=== PATIENT | male | born 1980 | race Caucasian/White ===

== ENCOUNTER 2018-07-18 09:46 | Emergency (ER) | payer SELFPAY ==
[~2018-07-18] VITALS: Ht 175.3 cm; Wt 63.5 kg
[~2018-07-18 09:46] MED LIST: CATAFLAM PO; CEPH500C PO
--- OUTSIDE RECORDS SUMMARY | 2018-07-18 09:50 | XMS REPORT | Continuity of Care Document ---
Author Author [facility] Organization [facility] Address Unknown Phone Unavailable Allergies Active Description Code Type Severity Reaction Onset Reported/Identified Relationship to Patient Clinical Status Yes ERYTHROMYCIN MILD OTHER Yes erythromycin base [id number] Drug Allergy Unknown N/A 12/12/2014 Medications Medication Packaging Start Date Stop Date Route Dosage Sig AMOX-CLAV 875/125 TAB 875 MG-125MG (AUGMENTIN) TAB 06/14/2018 06/14/2018 ONCE&1835 Problems Date Dx Coded Attending Type Code Diagnosis Diagnosed By 12/12/2014 KIMI DHILLON DO Ot 521.00 UNSPEC DENTAL CARIES 12/12/2014 KIMI DHILLON DO Ot 522.5 PERIAPICAL ABSCESS 12/12/2014 KIMI DHILLON DO Ot 525.9 DENTAL DISORDER NOS 03/21/2015 RAY BRAMBILA, HALEY Stephenson Ot 305.1 03/21/2015 RAY BRAMBILA, HALEY Stephenson Ot 786.50 03/21/2015 HALEY BELL MD Ot 922.1 03/21/2015 HALEY BELL MD Ot 959.01 03/21/2015 HALEY BELL MD Ot E000.8 03/21/2015 HALEY BELL MD Ot E849.7 03/21/2015 HALEY BELL MD Ot E880.9 01/15/2016 DANIEL LANDRY DO Ot E86.0 DEHYDRATION 01/15/2016 DANIEL LANDRY DO Ot F15.10 OTHER STIMULANT ABUSE, UNCOMPLICATED 01/15/2016 DANIEL LANDRY DO Ot F17.210 NICOTINE DEPENDENCE, CIGARETTES, UNCOMPL 01/15/2016 DANIEL LANDRY DO Ot R20.2 PARESTHESIA OF SKIN 01/16/2016 DANIEL LANDRY DO Ot E86.0 DEHYDRATION 01/16/2016 DANIEL LANDRY DO Ot F15.10 OTHER STIMULANT ABUSE, UNCOMPLICATED 01/16/2016 DANIEL LANDRY DO Ot F17.210 NICOTINE DEPENDENCE, CIGARETTES, UNCOMPL 01/16/2016 DANIEL LANDRY DO Ot R20.2 PARESTHESIA OF SKIN 01/05/2018 Wang Cross 521.00 DENTAL CARIES, UNSPECIFIED 01/05/2018 Wang Cross K02.9 DENTAL CARIES, UNSPECIFIED 06/14/2018 Terrance Armas 706.2 SEBACEOUS CYST 06/14/2018 Terrance Armas L72.3 SEBACEOUS CYST Procedures There is no data. Results There is no data. Encounters ACCT No. Visit Date/Time Discharge Status Pt. Type Provider Facility Loc./Unit Complaint [id number] 01/15/2016 10:00:00 01/15/2016 12:20:00 DIS Emergency DANIEL LANDRY DO [facility] ER [id number] 03/20/2015 22:35:00 03/21/2015 00:39:00 DIS Emergency HALEY BELL MD [facility] ER [id number] 12/12/2014 01:59:00 12/12/2014 02:39:00 DIS Emergency KIMI DHILLON DO [facility] ER [id number] 06/14/2018 17:50:00 06/14/2018 19:02:00 [id number] 01/05/2018 09:55:00 01/05/2018 11:01:00 [id number] 06/14/2018 18:37:30 Document Registration [email or web address] 03/20/2015 22:35:21 ACT Document Registration
--- NOTE | 2018-07-18 10:28 | ED Integumentary General ---
General Chief Complaint: Skin/Wound Problems Stated Complaint: STOMACH WOUND;INFECTED Nursing Triage Note: PT AMBULATES TO ROOM 9 PT CO OF WOUND ON R LOWER ABD, PT HAS 4IVC2OY WOUND ON R LOWER ABD. STATES STARTED LAST WEDNESDAY GETTING RED. PT STATES HAS SAME AREA COUPLE YEARS AGO IN SAME SPOT BUT HEALED UP Source: patient Exam Limitations: no limitations (HALEY BELL MD) History of Present Illness Date Seen by Provider: Jul 18, 2018 Time Seen by Provider: 10:13 Initial Comments Here with complaint of wound to the right lower abdomen. Apparently she's had an abscess there previously and he was able to squeeze it and get it to drain. He comes back intermittently. It came back over the last several days and he tried to squeeze it today and it appears to have drained under the skin laterally now and not out. There is redness and inflammation around it. Denies fevers or vomiting. Timing/Duration: week, getting worse Severity: moderate Location: torso Possible Cause: no cause identified Associated Symptoms: edema; No fever, No rash (HALEY BELL MD) Allergies and Home Medications Allergies Coded Allergies: erythromycin base (Unverified Allergy, Unknown, 12/12/14) Home Medications Sulfamethoxazole/Trimethoprim 1 Each Tablet, 1 EACH PO BID Prescribed by: HALEY BELL on 07/18/18 1059 Patient Home Medication List Home Medication List Reviewed: Yes (HALEY BELL MD) Review of Systems Review of Systems Constitutional: see HPI; No chills, No fever Respiratory: no symptoms reported Cardiovascular: no symptoms reported Skin: see HPI, change in color, lesions Psychiatric/Neurological: No Symptoms Reported (HALEY BELL MD) Past Ysxmodn-Wbkhqb-Vsvoma Hx Past Med/Social Hx: Reviewed Nursing Past Med/Soc Hx (HALEY BELL MD) Patient Social History Alcohol Use: Rarely Uses Recreational Drug Use: Yes (POT) Smoking Status: Current Everyday Smoker Type Used: Cigarettes Recent Foreign Travel: No Contact w/Someone Who Travel: No Recent Infectious Disease Expo: No Recent Hopitalizations: No (HALEY BELL MD) Immunizations Up To Date Tetanus Booster (TDap): Unknown (HALEY BELL MD) Seasonal Allergies Seasonal Allergies: No (HALEY BELL MD) Past Medical History Surgeries: No Respiratory: No Cardiac: No Neurological: No Reproductive Disorders: No Sexually Transmitted Disease: No HIV/AIDS: No Gastrointestinal: No Musculoskeletal: No Endocrine: No Cancer: No Psychosocial: No Integumentary: No Blood Disorders: No Adverse Reaction/Blood Tranf: No (HALEY BELL MD) Family Medical History Reviewed Nursing Family Hx (HALEY BELL MD) Physical Exam Vital Signs Vital Signs - First Documented 07/18/18 09:56 Temp 96.6 Pulse 79 Resp 18 B/P (MAP) 163/104 (123) Pulse Ox 99 (JULIANA WALSHIS) Vital Signs Capillary Refill : Less Than 3 Seconds (HALEY BELL MD) General Appearance: WD/WN, no apparent distress Cardiovascular: regular rate, rhythm, no murmur Respiratory: lungs clear, normal breath sounds Skin: warm/dry Skin Problem Location: torso (right lower quadrant abdomen at the belt line) Skin Problem Character: abscess (1 x 2 cm), erythema (3 x 3 cm over area of tenderness), tenderness (HALEY BELL MD) Procedures/Interventions I&D : Site: right lower abdominal wall Blade Size: 11 I & D Procedure: betadine prep Packing/Drain: Idoform 08/05 Progress Betadine scrub was used at the area. The abscess was anesthetized with approximately 3 and half mL of lidocaine 1% without epinephrine. A single 1 cm incision was made into the central punctum area using an 11 blade scalpel. Moderate amount of white purulent drainage was expressed. Hemostats were used to break up loculations. Iodoform packing was used, approximately half an inch to pack the wound, leaving a wick to facilitate drainage. Patient tolerated procedure well. Gauze dressing was applied. (ALMA DELIA WALSH) Progress/Results/Core Measures Results/Orders Medications Given in ED Current Medications Medications Dose Ordered Sig/Yulissa Route Start Time Stop Time Status Last Admin Dose Admin Lidocaine HCl 20 ml ONCE ONCE INJ 07/18/18 11:00 07/18/18 11:01 DC 07/18/18 11:00 5 ML (ALMA DELIA WALSH) Vital Signs/I&O 07/18/18 09:56 Temp 96.6 Pulse 79 Resp 18 B/P (MAP) 163/104 (123) Pulse Ox 99 (ALMA DELIA WALSH) Blood Pressure Mean: 123 Progress Progress Note : Progress Note Seen and evaluated. I&D wound after anesthesia with local 2 percent lidocaine with epinephrine. Wound culture obtained. Packed with dressing. Discharged home with return precautions. Patient verbalize understanding instructions and agreement with plan. (HALEY BELL MD) Departure Impression Primary Impression: Abscess Disposition: HOME, SELF-CARE Condition: Improved Departure-Patient Inst. Decision time for Depature: 10:27 (HALEY BELL MD) Referrals: NO,LOCAL PHYSICIAN (PCP/Family) Primary Care Physician Patient Instructions: Abscess Incision and Drainage (DC) Add. Discharge Instructions: All discharge instructions reviewed with patient and/or family. Voiced understanding. Take medications as directed. You may use ibuprofen and 600 mg every 8 hours as needed for pain. You may take Tylenol/acetaminophen 1000 mg every 8 hours as needed for pain. Return in 2 days for wound recheck and packing removal. Return for worse pain, foul-smelling drainage, fever, weakness, breathing problems or other concerns as needed. Scripts Sulfamethoxazole/Trimethoprim (Sulfamethoxazole-Tmp Ds Tablet) 1 Each Tablet 1 EACH PO BID, #14 TAB 0 Refills Prov: HALEY BELL MD 07/18/18 HALEY BELL MD Jul 18, 2018 10:28 ALMA DELIA WALSH Jul 18, 2018 11:20
[2018-07-18] MEDS ORDERED: LIDOCAINE 1% INJ 20 ML 20 ML VIAL ONE (10:56)
[2018-07-18] MEDS ORDERED: SULF-222 PO (10:59)
[2018-07-18] MEDS ORDERED: HYDROcodone/APAP 7.5 MG/325 MG (LORTAB, LORCET PLUS) TABLET PO STA (10:59)
[2018-07-18] MEDS ORDERED: LIDOCAINE 1% INJ 20 ML 20 ML VIAL INJ ONE (11:00)
[2018-07-18 11:56] VITALS: BP 163/104
== END 2018-07-18 11:56 | disposition home or self-care (01) ==
LOC: EDUNIT# 09:46 → ER 09:47
DX: L02.211 Cutaneous abscess of abdominal wall (principal); F12.10 Cannabis abuse, uncomplicated; F17.210 Nicotine dependence, cigarettes, uncomplicated; Z88.0 Allergy status to penicillin
CPT/HCPCS: 10060; 87070; 87205

== ENCOUNTER 2018-09-10 01:03 | Emergency (ER) | payer SELFPAY ==
[~2018-09-10] VITALS: Ht 175.3 cm; Wt 68.0 kg
[~2018-09-10 01:03] MED LIST changes: +SULF-222 PO
--- OUTSIDE RECORDS SUMMARY | 2018-09-10 01:10 | XMS REPORT | Continuity of Care Document ---
Author Author [facility] Organization [facility] Address Unknown Phone Unavailable Allergies Active Description Code Type Severity Reaction Onset Reported/Identified Relationship to Patient Clinical Status Yes ERYTHROMYCIN MILD OTHER Yes erythromycin base [id number] Drug Allergy Unknown N/A 12/12/2014 Medications Medication [...] RAY BRAMBILA, HALEY Stephenson Ot 786.50 03/21/2015 RAY BRAMBILA, HALEY Stephenson Ot 922.1 03/21/2015 RAY BRAMBILA, HALEY Stephenson Ot 959.01 03/21/2015 HALEY BELL MD Ot E000.8 03/21/2015 HALEY BELL MD Ot E849.7 03/21/2015 RAY BRAMBILA, HALEY Stephenson Ot E880.9 01/15/2016 DANIEL LANDRY DO Ot E86.0 DEHYDRATION 01/15/2016 DANIEL LANDRY DO Ot F15.10 OTHER STIMULANT ABUSE, UNCOMPLICATED 01/15/2016 DNAIEL LANDRY DO Ot F17.210 NICOTINE DEPENDENCE, CIGARETTES, UNCOMPL 01/15/2016 DANIEL LANDRY DO Ot R20.2 PARESTHESIA OF SKIN 01/16/2016 DANIEL LANDRY DO Ot E86.0 DEHYDRATION 01/16/2016 DANIEL LANDRY DO Ot F15.10 OTHER STIMULANT ABUSE, UNCOMPLICATED 01/16/2016 DANIEL LANDRY DO Danyel Ot F17.210 NICOTINE DEPENDENCE, CIGARETTES, UNCOMPL 01/16/2016 DANIEL LANDRY DO Ot R20.2 PARESTHESIA OF SKIN 01/05/2018 [place] Cross 521.00 DENTAL CARIES, UNSPECIFIED 01/05/2018 Wang Cross K02.9 DENTAL CARIES, UNSPECIFIED 06/14/2018 Pawel Terrance A 706.2 SEBACEOUS CYST 06/14/2018 ElverbhavyaTerrance cobian A L72.3 SEBACEOUS CYST 07/18/2018 HALEY BELL MD Ot F12.10 CANNABIS ABUSE, UNCOMPLICATED 07/18/2018 HALEY BELL MD Ot F17.210 NICOTINE DEPENDENCE, CIGARETTES, UNCOMPL 07/18/2018 HALEY BELL MD Ot L02.211 CUTANEOUS ABSCESS OF ABDOMINAL WALL 07/18/2018 HALEY BELL MD Ot R10.31 RIGHT LOWER QUADRANT PAIN 07/18/2018 HALEY BELL MD Ot Z88.0 ALLERGY STATUS TO PENICILLIN 07/20/2018 HALEY BELL MD Ot F12.10 CANNABIS ABUSE, UNCOMPLICATED 07/20/2018 HALEY BELL MD Ot F17.210 NICOTINE DEPENDENCE, CIGARETTES, UNCOMPL 07/20/2018 HALEY BELL MD Ot L02.211 CUTANEOUS ABSCESS OF ABDOMINAL WALL 07/20/2018 HALEY BELL MD Ot R10.31 RIGHT LOWER QUADRANT PAIN 07/20/2018 HALEY BELL MD Ot Z88.0 ALLERGY STATUS TO PENICILLIN 07/21/2018 SANTIAGO GRULLON APRN Ot F17.200 NICOTINE DEPENDENCE, UNSPECIFIED, UNCOMP 07/21/2018 SANTIAGO GRULLON APRN Ot S31.109D UNSP OPN WND ABD WALL, UNSP Q W/O PENET 07/21/2018 SANTIAGO GRULLON APRN Ot X58.XXXD EXPOSURE TO OTHER SPECIFIED FACTORS, SUB 08/11/2018 SANTIAGO GRULLON APRN Ot F17.200 NICOTINE DEPENDENCE, UNSPECIFIED, UNCOMP 08/11/2018 SANTIAGO GRULLON APRN Ot S31.109D UNSP OPN WND ABD WALL, UNSP Q W/O PENET 08/11/2018 GRULLON, PETER J SHEETMETAL PATTERNMAKER Ot X58.XXXD EXPOSURE TO OTHER SPECIFIED FACTORS, SUB 08/11/2018 SANTIAGO GRULLON SHEETMETAL PATTERNMAKER Ot F17.200 NICOTINE DEPENDENCE, UNSPECIFIED, UNCOMP 08/11/2018 SANTIAGO GRULLON SHEETMETAL PATTERNMAKER Ot S31.109D UNSP OPN WND ABD WALL, UNSP Q W/O PENET 08/11/2018 SANTIAGO GRULLON APRN Ot X58.XXXD EXPOSURE TO OTHER SPECIFIED FACTORS, SUB Procedures There is no data. Results Test Result Range Gram stain microscopy - 07/18/18 11:00 Gram stain microscopy No bacteria seen NRG Bacteria identification in wound by culture - 07/18/18 11:00 Bacteria identification in wound by culture SEE REPORT NRG QUANTITY OF GROWTH . NRG Encounters ACCT No. Visit Date/Time Discharge Status Pt. Type Provider Facility Loc./Unit Complaint [id number] 07/21/2018 18:01:00 07/21/2018 18:27:00 DIS Emergency SANTIAGO GRULLON APRN [facility] ER WOUND CARE [id number] 07/18/2018 09:47:00 07/18/2018 11:56:00 DIS Emergency HALEY BELL MD [facility] ER STOMACH WOUND; INFECTED [id number] 01/15/2016 10:00:00 01/15/2016 12:20:00 DIS Emergency DANIEL LANDRY DO [facility] ER [id number] 03/20/2015 22:35:00 03/21/2015 00:39:00 DIS Emergency HALEY BELL MD [facility] ER [id number] 12/12/2014 01:59:00 12/12/2014 02:39:00 DIS Emergency KIMI DHILLON DO [facility] ER [id number] 09/10/2018 01:06:00 ACT Emergency HALEY BELL MD [facility] ER KNOTS UNDER RT ARM-PAINFUL [id number] 06/14/2018 17:50:00 06/14/2018 19:02:00 [id number] 01/05/2018 09:55:00 01/05/2018 11:01:00 [facility] 06/14/2018 18:37:30 Document Registration [email or web address] 03/20/2015 22:35:21 ACT Document Registration
--- NOTE | 2018-09-10 02:17 | ED Integumentary General ---
General Chief Complaint: Skin/Wound Problems Stated Complaint: KNOTS UNDER RT ARM-PAINFUL Nursing Triage Note: SWOLLEN/MACERATED RIGHT AXILLA. Source: patient Exam Limitations: no limitations (GINGER AZEVEDO STUDENT) History of Present Illness Date Seen by Provider: Sep 10, 2018 Time Seen by Provider: 02:00 Initial Comments 38 y/o M presented for complaints of 3 swollen, painful knots in his right armpit. The first two showed up about 1 week ago and have since drained after popping them. The largest one just popped up yesterday and is the most painful and swollen. This one has not drained yet. He denies fever, chills, or night sweats. He has had a similar abscess before on his right side of his abdomen, for which he was seen in July in the ED. The abscess on the abdomen was I& Ded and he was given Bactrim. Timing/Duration: yesterday, week Severity: moderate Location: extremities (right axilla) Possible Cause: no cause identified Associated Symptoms: No change in skin texture, No fever, No headache, No malaise, No rash, No sore throat; swelling/mass/lumps (GINGER AZEVEDO STUDENT) Timing/Duration: getting worse Severity: moderate Location: extremities (right axilla) Possible Cause: no cause identified Associated Symptoms: change in skin texture; No fever (HALEY BELL MD) Allergies and Home Medications Allergies Coded Allergies: erythromycin base (Unverified Allergy, Unknown, 12/12/14) Home Medications No Active Prescriptions or Reported Meds Patient Home Medication List Home Medication List Reviewed: Yes (GINGER AZEVEDO STUDENT) Home Medication List Reviewed: Yes (HALEY BELL MD) Review of Systems Review of Systems Constitutional: No chills, No diaphoresis, No fever, No malaise EENTM: No hoarseness, No epistaxis, No nose congestion, No throat pain Respiratory: No cough, No short of breath Gastrointestinal: No abdominal pain, No constipation, No diarrhea, No vomiting Genitourinary: No dysuria, No frequency Musculoskeletal: No joint pain, No joint swelling, No muscle pain, No muscle stiffness, No muscle weakness, No neck pain Skin: change in color (erythema in right axilla); No lesions; lumps (3 raised, erythematous, tender lumps in the right axilla (largest is about 1 square cm)); No pruritus, No rash Psychiatric/Neurological: Denies Headache, Denies Numbness, Denies Weakness ( GINGER AZEVEDO STUDENT) Respiratory: no symptoms reported Cardiovascular: no symptoms reported Skin: change in color (erythema in right axilla), lesions, lumps (3 raised, erythematous, tender lumps in the right axilla (largest is about 1 square cm)); No rash (HALEY BELL MD) Past Xhgbvav-Spnpnb-Unuzff Hx Past Med/Social Hx: Reviewed Nursing Past Med/Soc Hx (HALEY BELL MD) Patient Social History Alcohol Use: Denies Use Recreational Drug Use: No Smoking Status: Current Everyday Smoker Type Used: Cigarettes 2nd Hand Smoke Exposure: Yes Recent Foreign Travel: No Contact w/Someone Who Travel: No Recent Infectious Disease Expo: No Recent Hopitalizations: No (GINGER AZEVEDO) Immunizations Up To Date Tetanus Booster (TDap): Unknown (GINGER AZEVEDO) Seasonal Allergies Seasonal Allergies: No (GINGER AZEVEDO) Past Medical History Surgeries: No Respiratory: No Cardiac: No Neurological: No Reproductive Disorders: No Sexually Transmitted Disease: No HIV/AIDS: No Genitourinary: No Gastrointestinal: No Musculoskeletal: No Endocrine: No HEENT: No Cancer: No Psychosocial: No Integumentary: No Blood Disorders: No Adverse Reaction/Blood Tranf: No (GINEGR AZEVEDO) Family Medical History Reviewed Nursing Family Hx (GINGER AZEVEDO) Reviewed Nursing Family Hx (HALEY BELL MD) No Pertinent Family Hx (GINGER AZEVEDO) Physical Exam Vital Signs Vital Signs - First Documented 09/10/18 01:20 Temp 96.9 Pulse 70 Resp 18 B/P (MAP) 128/92 (104) Pulse Ox 100 O2 Delivery Room Air (HALEY BELL MD) Vital Signs Capillary Refill : Less Than 3 Seconds (GINGER AZEVEDO) General Appearance: WD/WN, no apparent distress HEENT: PERRL/EOMI, pharynx normal Neck: non-tender, full range of motion, supple, normal inspection Cardiovascular: regular rate, rhythm, no edema, no murmur Respiratory: chest non-tender, lungs clear, normal breath sounds, no respiratory distress, no accessory muscle use Gastrointestinal: normal bowel sounds, non tender, soft Back: normal inspection, no vertebral tenderness Extremities: normal range of motion, normal inspection, no pedal edema, no calf tenderness Neurologic/Psychiatric: no motor/sensory deficits, alert, normal mood/affect, oriented x 3 Skin: normal color, warm/dry Skin Problem Location: upper extremities (right axilla) Skin Problem Character: abscess (x3 in right axilla), erythema, vesicular, warm (GINGER AZEVEDO STUDENT) General Appearance: WD/WN, no apparent distress Cardiovascular: regular rate, rhythm, no edema, no murmur Respiratory: lungs clear, normal breath sounds Neurologic/Psychiatric: alert, oriented x 3 Skin: warm/dry Skin Problem Location: upper extremities (right axilla) Skin Problem Character: abscess (x3 in right axilla), erythema, warm Lymphatic: axilla node tender (R) (HALEY BELL MD) Progress/Results/Core Measures Results/Orders My Orders Orders - HALEY BELL MD Hydrocodone/Apap 7.5/325 Tab (Lortab 7. (09/10/18 02:55) Sulfamethoxazole/Trimet Ds Tab (Bactrim (09/10/18 02:55) Rx-Mupirocin 2% Oint (Rx-Bactroban) (09/10/18 02:55) (HALEY BELL MD) Vital Signs/I&O 09/10/18 01:20 Temp 96.9 Pulse 70 Resp 18 B/P (MAP) 128/92 (104) Pulse Ox 100 O2 Delivery Room Air (HALEY BELL MD) Blood Pressure Mean: 104 Progress Progress Note : Progress Note I have seen and evaluated the patient and agree with above except as indicated. I have directed the plan of care. Patient is here with right axillary abscess /lymph nodes that are tender. He did try to express purulence from the wound and it got worse afterwards. Here due to pain. I did offer IND versus topical and oral antibiotics and he chose to forego I&D at this point. This is a reasonable approach. Mupirocin ointment to wound as well as Bactrim DS one tab by mouth given. Hydrocodone 7.5 one tab by mouth given for pain. We will continue outpatient pain therapy with fzun-nfx-vfutsdp medicines. Patient informed that this may get worse and he is to return at that time and he will need I&D and he verbalized understanding. Discharged home with return precautions. Patient verbalize understanding instructions and agreement with plan. (HALEY BELL MD) Departure Impression Primary Impression: Abscess Disposition: HOME, SELF-CARE Condition: Stable Departure-Patient Inst. Decision time for Depature: 03:08 (HALEY BELL MD) Referrals: NO,LOCAL PHYSICIAN (PCP/Family) Primary Care Physician Patient Instructions: Skin Abscess Add. Discharge Instructions: All discharge instructions reviewed with patient and/or family. Voiced understanding. Take antibiotics as directed. Use antibiotic ointment over wound 2 or 3 times daily for the next several days and then as needed. Avoid deodorant or antiperspirant until healed. You may use deodorant at that time. You may use warm, moist heat to wound 3 times a day as well. Return for worsening, increased swelling, fever or other concerns as needed as you may need the incision and drainage at that time. You may take Tylenol/acetaminophen 1000 mg every 8 hours as needed for fever or pain. You may take ibuprofen 800 mg every 8 hours as needed for fever or pain. Follow-up with your DrCarlos in a few days for recheck as needed. Scripts No Active Prescriptions or Reported Meds GINGER AZEVEDO Sep 10, 2018 02:17 HALEY BELL MD Sep 10, 2018 03:12
[2018-09-10] MEDS ORDERED: HYDROcodone/APAP 7.5 MG/325 MG (LORTAB, LORCET PLUS) TABLET PO STA (02:55)
[2018-09-10] MEDS ORDERED: RX-MUPIROCIN (BACTROBAN) 2% OINT 22 GM TUBE TOP STA (02:55)
[2018-09-10] MEDS ORDERED: TRIM/SULFAMETH 160/800 (SEPTRA DS) TAB PO STA (02:55)
[2018-09-10] MEDS ORDERED: SULF-222 PO (03:14)
[2018-09-10 03:15] VITALS: BP 126/88
[2018-09-11] MEDS ORDERED: CEPH-507 PO (12:45)
[2018-09-11] MEDS ORDERED: HYDR-4226 PO (12:45)
== END 2018-09-10 03:15 | disposition home or self-care (01) ==
LOC: EDUNIT# 01:03 → ER 01:06
DX: L02.411 Cutaneous abscess of right axilla (principal); F17.210 Nicotine dependence, cigarettes, uncomplicated; Z88.1 Allergy status to other antibiotic agents

== ENCOUNTER 2018-09-11 11:47 | Emergency (ER) | payer SELFPAY ==
[~2018-09-11] VITALS: Ht 175.3 cm; Wt 68.0 kg
--- OUTSIDE RECORDS SUMMARY | 2018-09-11 11:54 | XMS REPORT | Continuity of Care Document ---
Author Author [facility] Organization [facility] Address Unknown Phone Unavailable Allergies Active Description Code Type Severity Reaction Onset Reported/Identified Relationship to Patient Clinical Status Yes ERYTHROMYCIN MILD OTHER Yes erythromycin base [id number] Drug Allergy Unknown N/A 12/12/2014 Medications Medication [...] Q W/O PENET 08/11/2018 GRULLON, PETER J HOT KNIFE FOXING CUTTER Ot X58.XXXD EXPOSURE TO OTHER SPECIFIED FACTORS, SUB 08/11/2018 SANTIAGO GRULLON HOT KNIFE FOXING CUTTER Ot F17.200 NICOTINE DEPENDENCE, UNSPECIFIED, UNCOMP 08/11/2018 SANTIAGO GRULLON HOT KNIFE FOXING CUTTER Ot S31.109D UNSP OPN WND ABD WALL, [...] Status Pt. Type Provider Facility Loc./Unit Complaint [id number] 09/10/2018 01:06:00 09/10/2018 03:15:00 DIS Emergency HALEY BELL MD [facility] ER KNOTS UNDER RT ARM- PAINFUL [id number] 07/21/2018 18:01:00 07/21/2018 18:27:00 DIS Emergency SANTIAGO GRULLON APRN [facility] ER WOUND CARE [id number] 07/18/2018 09:47:00 07/18/2018 11:56:00 DIS Emergency HALEY BELL MD [facility] ER STOMACH WOUND; INFECTED [id number] 01/15/2016 10:00:00 01/15/2016 12:20:00 DIS Emergency DANIEL LANDRY DO [facility] ER [id number] 03/20/2015 22:35:00 03/21/2015 00:39:00 DIS Emergency HALEY BELL MD [facility] ER [id number] 12/12/2014 01:59:00 12/12/2014 02:39:00 DIS Emergency KIMI DHILLON DO [facility] ER [id number] 09/11/2018 11:48:00 ACT Emergency MILTON SIMMONS MD [facility] ER CYST UNDER R ARM,SEEN HERE Wednesday [id number] 06/14/2018 17:50:00 06/14/2018 19:02:00 DIS Outpatient Pawel [facility] ER [id number] 01/05/2018 09:55:00 01/05/2018 11:01:00 [id number] 06/14/2018 18:37:30 Document Registration [email or web address] 03/20/2015 22:35:21 ACT Document Registration
[2018-09-11] MEDS ORDERED: LIDOCAINE 2% 20 ML (XYLOCAINE) VIAL INJ ONE (12:15)
[2018-09-11] MEDS ORDERED: HYDROcodone/APAP 5 MG/325 MG (LORTAB) TAB PO ONE (12:15)
[2018-09-11] MEDS ORDERED: CLINDAMYCIN 300 MG/2ML (CLEOCIN) VIAL IM SCH (12:15)
--- NOTE | 2018-09-11 12:35 | NUR ---
WOUND CX TO RIGHT AXILLA AXIS PER Roseann GRULLON APRN.
--- NOTE | 2018-09-11 12:44 | ED Integumentary General ---
General Chief Complaint: Skin/Wound Problems Stated Complaint: CYST UNDER R ARM,SEEN HERE WEDNESDAY MORNING Nursing Triage Note: AMBULATORY TO ED WITH C/O "KNOTS TO UNDER RIGHT ARMPIT GETTING WORSE", PT JUST SEEN HERE EARLY WEDNESDAY MORNING FOR SAME C/O AND GIVEN ANTIBIOTICS AND PAIN MEDS, STATES HE HAS TAKEN MEDS PRESCRIBED. Source: patient Exam Limitations: no limitations History of Present Illness Date Seen by Provider: Sep 11, 2018 Time Seen by Provider: 12:40 Initial Comments To ER with worsening redness pain and swelling to the right axilla. He was seen here 2 days ago with 3 small abscesses, given Bactrim and topical cream without improvement. Denies fevers or chills. Timing/Duration: getting worse Severity: moderate Location: generalized (right axilla) Allergies and Home Medications Allergies Coded Allergies: erythromycin base (Unverified Allergy, Unknown, 12/12/14) Home Medications Sulfamethoxazole/Trimethoprim 1 Each Tablet, 1 EACH PO BID Prescribed by: HALEY BELL on 09/10/18 0314 Patient Home Medication List Home Medication List Reviewed: Yes Review of Systems Review of Systems Constitutional: see HPI; No chills, No fever EENTM: see HPI Respiratory: no symptoms reported Cardiovascular: no symptoms reported Genitourinary: no symptoms reported Musculoskeletal: no symptoms reported Skin: see HPI Psychiatric/Neurological: No Symptoms Reported Endocrine: No Symptoms Reported Past Ybrcztx-Qkztsh-Jctcnm Hx Patient Social History Alcohol Use: Denies Use Recreational Drug Use: No Type Used: Cigarettes 2nd Hand Smoke Exposure: Yes Recent Foreign Travel: No Contact w/Someone Who Travel: No Recent Infectious Disease Expo: No Recent Hopitalizations: No Immunizations Up To Date Tetanus Booster (TDap): Unknown Seasonal Allergies Seasonal Allergies: No Past Medical History Surgeries: No Respiratory: No Cardiac: No Neurological: No Reproductive Disorders: No Sexually Transmitted Disease: No HIV/AIDS: No Genitourinary: No Gastrointestinal: No Musculoskeletal: No Endocrine: No HEENT: No Cancer: No Psychosocial: No Integumentary: No Blood Disorders: No Adverse Reaction/Blood Tranf: No Family Medical History No Pertinent Family Hx Physical Exam Vital Signs Vital Signs - First Documented 09/11/18 12:10 Temp 97.8 Pulse 79 Resp 19 B/P (MAP) 113/69 (84) Capillary Refill : Less Than 3 Seconds General Appearance: WD/WN, no apparent distress HEENT: PERRL/EOMI, normal ENT inspection Respiratory: no respiratory distress, no accessory muscle use Skin: normal color, warm/dry, other (there is a large area of induration and erythema to the right axilla. There are 3 pustules in various locations. There is minimal fluctuance.) Skin Problem Character: abscess Procedures/Interventions I&D : Blade Size: 11 I & D Procedure: betadine prep Progress 2 of the 3 pustules were opened with an 11 blade scalpel after anesthetizing with 3 mL of 1% lidocaine without epinephrine. Minimal amount of purulent material was expressed. Culture of this was collected and sent to lab. Bedside ultrasound was used to ensure that there were no other areas of fluid collection that could be drained and in fact there were not. This was covered with gauze patient was discharged to home. I'll give him a few days off of work , warm compresses to the area, add Keflex to the Bactrim, hydrocodone for pain control. Progress/Results/Core Measures Results/Orders My Orders Orders - SANTIAGO GRULLON APRN Wound Culture (09/11/18 12:14) Clindamycin Injection (Cleocin Injection (09/11/18 12:15) Hydrocodone/Apap 5/325 Tablet (Lortab 5 (09/11/18 12:15) Lidocaine 2% Injection 20 Ml (Xylocaine (09/11/18 12:15) Medications Given in ED Current Medications Medications Dose Ordered Sig/Yulissa Route Start Time Stop Time Status Last Admin Dose Admin Acetaminophen/ Hydrocodone Bitart 1 tab ONCE ONCE PO 09/11/18 12:15 09/11/18 12:16 DC 09/11/18 12:29 1 TAB Lidocaine HCl 2 ml ONCE ONCE INJ 09/11/18 12:15 09/11/18 12:16 DC 09/11/18 12:23 2 ML Vital Signs/I&O 09/11/18 12:10 Temp 97.8 Pulse 79 Resp 19 B/P (MAP) 113/69 (84) Blood Pressure Mean: 84 Departure Impression Primary Impression: Cellulitis Qualified Codes: L03.111 - Cellulitis of right axilla Additional Impression: Abscess Disposition: 01 HOME, SELF-CARE Condition: Stable Departure-Patient Inst. Decision time for Depature: 12:44 Referrals: NO,LOCAL PHYSICIAN (PCP/Family) Primary Care Physician Patient Instructions: Abscess Incision and Drainage (DC), Cellulitis (Skin Infection), Child (DC) Add. Discharge Instructions: 1. Warm compresses to this area. You may shower letting water run over this. Continue the Bactrim and abdomen antibiotic called cephalexin. Change the dressing as needed to absorb any drainage. Pain medication as directed All discharge instructions reviewed with patient and/or family. Voiced understanding. Scripts Cephalexin (Keflex) 500 Mg Capsule 500 MG PO QID, #28 CAP Prov: SANTIAGO GRULLON APRN 09/11/18 Hydrocodone/Acetaminophen (Harbert 5-325 Tablet) 1 Each Tablet 1 EACH PO Q6H PRN for PAIN-MODERATE MDD 10, #20 TAB Prov: SANTIAGO GRULLON APRN 09/11/18 Work/School Note: Work Release Form Date Seen in the Emergency Department: Sep 11, 2018 Return to Work: Sep 14, 2018 SANTIAGO GRULLON APRN Sep 11, 2018 12:44
[2018-09-11] MEDS ORDERED: CEPH-507 PO (12:45)
[2018-09-11] MEDS ORDERED: HYDR-4226 PO (12:45)
[2018-09-11 12:53] VITALS: BP 112/68
== END 2018-09-11 12:54 | disposition home or self-care (01) ==
LOC: EDUNIT# 11:47 → ER 11:48
DX: L03.111 Cellulitis of right axilla (principal); L02.411 Cutaneous abscess of right axilla; Z88.1 Allergy status to other antibiotic agents; Z77.22 Contact with and (suspected) exposure to environmental tobacco smoke (acute) (chronic)
CPT/HCPCS: 10060; 87070; 87077; 87205

== ENCOUNTER 2019-02-27 20:36 | Emergency (ER) | payer SELFPAY ==
[~2019-02-27] VITALS: Ht 175.3 cm; Wt 68.0 kg
[~2019-02-27 20:36] MED LIST changes: +CEPH-507 PO; +HYDR-4226 PO
[2019-02-27] MEDS ORDERED: LACTATED RINGERS 1,000 ML IV ONE (20:47)
[2019-02-27 20:54] LABS: BASOPHILS % (AUTO) 0 % (0-10); EOSINOPHILS # (AUTO) 0.2 10^3/uL (0.0-0.3); EOSINOPHILS % (AUTO) 2 % (0-10); HEMATOCRIT 44 % (40-54); HEMOGLOBIN 14.9 G/DL (13.3-17.7); LYMPHOCYTES # (AUTO) 2.8 X 10^3 (1.0-4.0); LYMPHOCYTES % (AUTO) 30 % (12-44); MEAN CORPUSCULAR HEMOGLOBIN 32 PG (25-34); MEAN CORPUSCULAR HGB CONC 34 G/DL (32-36); MEAN CORPUSCULAR VOLUME 93 FL (80-99); MEAN PLATELET VOLUME 9.8 FL (7.4-10.4); MONOCYTES # (AUTO) 0.7 X 10^3 (0.0-1.0); MONOCYTES % (AUTO) 7 % (0-12); NEUTROPHILS # (AUTO) 5.6 X 10^3 (1.8-7.8); NEUTROPHILS % (AUTO) 61 % (42-75); PLATELET COUNT 250 10^3/uL (130-400); RED CELL DISTRIBUTION WIDTH 13.4 % (10.0-14.5); WHITE BLOOD COUNT 9.2 10^3/uL (4.3-11.0)
[2019-02-27 21:15] LABS: ALANINE AMINOTRANSFERASE 11 U/L (0-55); ALBUMIN 4.9 GM/DL (3.2-4.5); ALKALINE PHOSPHATASE 47 U/L (40-136); BILIRUBIN,TOTAL 0.4 MG/DL (0.1-1.0); BUN/CREATININE RATIO 10; CALCIUM 9.5 MG/DL (8.5-10.1); CARBON DIOXIDE 21 MMOL/L (21-32); CHLORIDE 108 MMOL/L (98-107); CREATININE SERUM 1.05 MG/DL (0.60-1.30); GFR ESTIMATED > 60; GLUCOSE 88 MG/DL (70-105); MAGNESIUM 2.9 MG/DL (1.8-2.4); POTASSIUM 3.3 MMOL/L (3.6-5.0); SODIUM 143 MMOL/L (135-145); TOTAL PROTEIN 7.5 GM/DL (6.4-8.2)
[2019-02-27 23:30] LABS: AMPHETAMINE SCREEN, URINE NEGATIVE (NEGATIVE); BARBITURATE SCREEN URINE NEGATIVE (NEGATIVE); BENZODIAZEPINES SCREEN URINE NEGATIVE (NEGATIVE); CANNABINOID SCREEN, URINE NEGATIVE (NEGATIVE); COCAINE SCREEN URINE NEGATIVE (NEGATIVE); METHADONE STAT NEGATIVE (NEGATIVE); METHAMPHETAMINE SCREEN URINE S NEGATIVE (NEGATIVE); OPIATE SCREEN URINE NEGATIVE (NEGATIVE); OXYCODONE STAT NEGATIVE (NEGATIVE); PROPOXYPHENE STAT NEGATIVE (NEGATIVE); TRICYCLIC ANTIDEPRESSANTS SCRE NEGATIVE (NEGATIVE)
--- NOTE | 2019-02-27 23:58 | ED Psychosocial ---
General Chief Complaint: Substance Abuse Stated Complaint: ETOH Source: patient, EMS Exam Limitations: no limitations History of Present Illness Date Seen by Provider: Feb 27, 2019 Time Seen by Provider: 20:38 Initial Comments This 39-year-old man presents to the emergency room extremely intoxicated. He was [place] in [place] and was not responding appropriately. He was brought to the emergency room via EMS. Patient is techn ically alert and oriented on arrival but appears rather intoxicated. He admits to drinking a significant amount of alcohol. He denies any injury. He has no physical complaints. He reports being seen at [facility] for the same thing last Wednesday. Allergies and Home Medications Allergies Coded Allergies: erythromycin base (Unverified Allergy, Unknown, 12/12/14) Home Medications Cephalexin 500 Mg Capsule, 500 MG PO QID Prescribed by: SANTIAGO GRULLON on 09/11/18 1245 Hydrocodone/Acetaminophen 1 Each Tablet, 1 EACH PO Q6H PRN for PAIN-MODERATE Prescribed by: SANTIAGO GRULLON on 09/11/18 1245 Sulfamethoxazole/Trimethoprim 1 Each Tablet, 1 EACH PO BID Prescribed by: HALEY BELL on 09/10/18 0314 Patient Home Medication List Home Medication List Reviewed: Yes Review of Systems Constitutional: see HPI EENTM: no symptoms reported Respiratory: no symptoms reported Cardiovascular: no symptoms reported Gastrointestinal: no symptoms reported Genitourinary: no symptoms reported Musculoskeletal: no symptoms reported Skin: no symptoms reported Psychiatric/Neurological: See HPI Past Auufsxk-Tbbtms-Ommurn Hx Patient Social History Alcohol Use: Regular Use Alcohol Beverage of Choice: Beer Recreational Drug Use: Yes Drug of Choice: 'ALL OF THEM" Type Used: Cigarettes 2nd Hand Smoke Exposure: Yes Recent Foreign Travel: No Contact w/Someone Who Travel: No Recent Hopitalizations: No Immunizations Up To Date Tetanus Booster (TDap): Unknown Seasonal Allergies Seasonal Allergies: No Past Medical History Surgeries: No Respiratory: No Cardiac: No Neurological: No Reproductive Disorders: No Sexually Transmitted Disease: No HIV/AIDS: No Genitourinary: No Gastrointestinal: No Musculoskeletal: No Endocrine: No HEENT: No Cancer: No Psychosocial: No Integumentary: No Blood Disorders: No Adverse Reaction/Blood Tranf: No Family Medical History No Pertinent Family Hx Physical Exam Vital Signs - First Documented 02/27/19 20:38 Temp 98.4 Pulse 101 Resp 22 B/P (MAP) 120/79 (93) Pulse Ox 98 O2 Delivery Room Air Capillary Refill : Height, Weight, BMI Height: 5'9.00" Weight: 150lbs. oz. 68.857296bb; 14.06 BMI Method:Stated General Appearance: WD/WN, thin, other (intoxicated) HEENT: PERRL/EOMI, normal ENT inspection Neck: normal inspection Respiratory: lungs clear, normal breath sounds, no respiratory distress, no accessory muscle use Cardiovascular: regular rate, rhythm, no edema, no murmur Gastrointestinal: normal bowel sounds, non tender, soft Extremities: normal inspection, no pedal edema Neurologic/Psychiatric: sieve grader tender II-XII nml as tested, no motor/sensory deficits, alert, oriented x 3, other (technically alert and oriented but intoxicated, belligerent, and irritable) Skin: normal color, warm/dry Progress/Results/Core Measures Results/Orders Lab Results Laboratory Tests Test 02/27/19 20:48 02/27/19 23:08 Range/Units White Blood Count 9.2 4.3-11.0 10^3/uL Red Blood Count 4.73 4.35-5.85 10^6/uL Hemoglobin 14.9 13.3-17.7 G/DL Hematocrit 44 40-54 % Mean Corpuscular Volume 93 80-99 FL Mean Corpuscular Hemoglobin 32 25-34 PG Mean Corpuscular Hemoglobin Concent 34 32-36 G/DL Red Cell Distribution Width 13.4 10.0-14.5 % Platelet Count 250 130-400 10^3/uL Mean Platelet Volume 9.8 7.4-10.4 FL Neutrophils (%) (Auto) 61 42-75 % Lymphocytes (%) (Auto) 30 12-44 % Monocytes (%) (Auto) 7 0-12 % Eosinophils (%) (Auto) 2 0-10 % Basophils (%) (Auto) 0 0-10 % Neutrophils # (Auto) 5.6 1.8-7.8 X 10^3 Lymphocytes # (Auto) 2.8 1.0-4.0 X 10^3 Monocytes # (Auto) 0.7 0.0-1.0 X 10^3 Eosinophils # (Auto) 0.2 0.0-0.3 10^3/uL Basophils # (Auto) 0.0 0.0-0.1 10^3/uL Sodium Level 143 135-145 MMOL/L Potassium Level 3.3 L 3.6-5.0 MMOL/L Chloride Level 108 H 98-107 MMOL/L Carbon Dioxide Level 21 21-32 MMOL/L Anion Gap 14 5-14 MMOL/L Blood Urea Nitrogen 10 7-18 MG/DL Creatinine 1.05 0.60-1.30 MG/DL Estimat Glomerular Filtration Rate > 60 BUN/Creatinine Ratio 10 Glucose Level 88 70-105 MG/DL Calcium Level 9.5 8.5-10.1 MG/DL Corrected Calcium 8.5-10.1 MG/DL Magnesium Level 2.9 H 1.8-2.4 MG/DL Total Bilirubin 0.4 0.1-1.0 MG/DL Aspartate Amino Transf (AST/SGOT) 14 5-34 U/L Alanine Aminotransferase (ALT/SGPT) 11 0-55 U/L Alkaline Phosphatase 47 40-136 U/L Total Protein 7.5 6.4-8.2 GM/DL Albumin 4.9 H 3.2-4.5 GM/DL Serum Alcohol 299 H <10 MG/DL Urine Opiates Screen NEGATIVE NEGATIVE Urine Oxycodone Screen NEGATIVE NEGATIVE Urine Methadone Screen NEGATIVE NEGATIVE Urine Propoxyphene Screen NEGATIVE NEGATIVE Urine Barbiturates Screen NEGATIVE NEGATIVE Ur Tricyclic Antidepressants Screen NEGATIVE NEGATIVE Urine Phencyclidine Screen NEGATIVE NEGATIVE Urine Amphetamines Screen NEGATIVE NEGATIVE Urine Methamphetamines Screen NEGATIVE NEGATIVE Urine Benzodiazepines Screen NEGATIVE NEGATIVE Urine Cocaine Screen NEGATIVE NEGATIVE Urine Cannabinoids Screen NEGATIVE NEGATIVE My Orders Orders - BERTA CORCORAN MD Ed Iv/Invasive Line Start (02/27/19 20:47) Lactated Ringers (Lr 1000 Ml Iv Solution (02/27/19 20:47) Alcohol (02/27/19 20:47) Cbc With Automated Diff (02/27/19 20:47) Comprehensive Metabolic Panel (02/27/19 20:47) Drug Screen Stat (Urine) (02/27/19 20:47) Magnesium (02/27/19 20:47) Medications Given in ED Current Medications Medications Dose Ordered Sig/Yulissa Route Start Time Stop Time Status Last Admin Dose Admin Lactated Ringer's 1,000 ml @ 0 mls/hr Q0M ONCE IV 7/29/19 20:47 02/27/19 20:49 DC 02/27/19 20:50 1,000 MLS/HR Vital Signs/I&O 02/27/19 02/28/19 20:38 00:05 Temp 98.4 98.4 Pulse 101 76 Resp 22 22 B/P (MAP) 120/79 (93) 101/22 (48) Pulse Ox 98 98 O2 Delivery Room Air Room Air Progress Progress Note : Progress Note Patient received nearly liter of IV fluid before he pulled his IV out. Patient's blood alcohol level was 299. He was allowed to rest in the emergency room and sober. He was eventually able to ambulate safely on his own and was discharged. Departure Impression Primary Impression: Acute alcoholic intoxication Qualified Codes: F10.929 - Alcohol use, unspecified with intoxication, un specified Disposition: 01 HOME, SELF-CARE Condition: Improved Departure-Patient Inst. Decision time for Depature: 23:58 Referrals: NO,LOCAL PHYSICIAN (PCP/Family) Primary Care Physician Patient Instructions: ALCOHOL AND SUBSTANCE ABUSE Add. Discharge Instructions: Avoid excessive consumption of alcohol. Drink plenty of clear nonalcoholic liquids. Return to care if you have worsening symptoms or otherwise need further medical attention. All discharge instructions reviewed with patient and/or family. Voiced understanding. BERTA CORCORAN MD Feb 27, 2019 23:58
[2019-02-28 00:05] VITALS: BP 101/22
[2019-02-28] MEDS ORDERED: FLUO20TA28 PO (18:12)
[2019-02-28] MEDS ORDERED: LORA0.5T PO (18:12)
== END 2019-02-28 00:05 | disposition home or self-care (01) ==
LOC: EDUNIT# 20:36 → ER 20:37
DX: F10.929 Alcohol use, unspecified with intoxication, unspecified (principal); Z88.1 Allergy status to other antibiotic agents; Z77.22 Contact with and (suspected) exposure to environmental tobacco smoke (acute) (chronic)
CPT/HCPCS: 36415; 80053; 80306; 80320; 83735; 85025; 96360

== ENCOUNTER 2019-02-28 14:48 | Emergency (ER) | payer SELFPAY ==
[~2019-02-28] VITALS: Ht 175.3 cm; Wt 68.0 kg
--- OUTSIDE RECORDS SUMMARY | 2019-02-28 14:53 | XMS REPORT | Continuity of Care Document ---
Author Organization Unknown Address Unknown Phone Unavailable Allergies Active Description Code Type Severity Reaction Onset Reported/Identified Relationship to Patient Clinical Status Yes ERYTHROMYCIN MILD MILD Yes ERYTHROMYCIN MILD OTHER Yes erythromycin base [id number] Drug Allergy Unknown N/A 12/12/2014 Medications Medication [...] 525.9 DENTAL DISORDER NOS 03/21/2015 RAY BRAMBILA, HAELY Stephenson Ot 305.1 03/21/2015 RAY BRAMBILA, HALEY [...] R20.2 PARESTHESIA OF SKIN 01/05/2018 Wang Cross A 521.00 DENTAL CARIES, UNSPECIFIED 01/05/2018 Wang Cross A K02.9 DENTAL CARIES, UNSPECIFIED 06/14/2018 Terrance Armas A 706.2 SEBACEOUS CYST 06/14/2018 Pawel Terrance A L72.3 SEBACEOUS CYST 07/18/2018 HALEY BELL [...] X58.XXXD EXPOSURE TO OTHER SPECIFIED FACTORS, SUB 09/12/2018 HALEY BELL MD Ot F17.210 NICOTINE DEPENDENCE, CIGARETTES, UNCOMPL 09/12/2018 HALEY BELL MD Ot L02.411 CUTANEOUS ABSCESS OF RIGHT AXILLA 09/12/2018 HALEY BELL MD Ot M79.89 OTHER SPECIFIED SOFT TISSUE DISORDERS 09/12/2018 HALEY BELL MD Ot Z88.1 ALLERGY STATUS TO OTHER ANTIBIOTIC AGENT 09/13/2018 SANTIAGO GRULLON APRN Ot L02.411 CUTANEOUS ABSCESS OF RIGHT AXILLA 09/13/2018 SANTIAGO GRULLON APRN Ot L03.111 CELLULITIS OF RIGHT AXILLA 09/13/2018 SANTIAGO GRULLON [employer] INTERN Ot M25.511 PAIN IN RIGHT SHOULDER 09/13/2018 SANTIAGO GRULLON APRN Ot Z77.22 CNTCT W AND EXPSR TO ENVIRON TOBACCO SMO 09/13/2018 SANTIAGO GRULLON [employer] SERVICES INTERN Ot Z88.1 ALLERGY STATUS TO OTHER ANTIBIOTIC AGENT 09/17/2018 SANTIAGO GRULLON APRN Ot L02.411 CUTANEOUS ABSCESS OF RIGHT AXILLA 09/17/2018 SANTIAGO GRULLON APRN Ot L03.111 CELLULITIS OF RIGHT AXILLA 09/17/2018 SANTIAGO GRULLON APRN Ot M25.511 PAIN IN RIGHT SHOULDER 09/17/2018 SANTIAGO GRULLON APRN Ot Z77.22 CNTCT W AND EXPSR TO ENVIRON TOBACCO SMO 09/17/2018 SANTIAGO GRULLON APRN Ot Z88.1 ALLERGY STATUS TO OTHER ANTIBIOTIC AGENT 02/22/2019 Jerrod Frank W 307.9 OTHER AND UNSPECIFIED SPECIAL SYMPTOMS OR SYNDROMES, NOT ELSEWHERE CLASSIFIED 02/22/2019 Jerrod Frank W R45.1 RESTLESSNESS AND AGITATION 02/22/2019 Jerrod Frank W 307.9 OTHER AND UNSPECIFIED SPECIAL SYMPTOMS OR SYNDROMES, NOT ELSEWHERE CLASSIFIED 02/22/2019 Jerrod Frank W R45.1 RESTLESSNESS AND AGITATION Procedures There is no data. Results Test Result Range Gram stain microscopy - 07/18/18 11:00 Gram stain microscopy No bacteria seen NRG Bacteria identification in wound by culture - 07/18/18 11:00 Bacteria identification in wound by culture SEE REPORT NRG QUANTITY OF GROWTH . NRG Gram stain microscopy - 09/11/18 12:35 Gram stain microscopy No bacteria seen NRG Bacteria identification in wound by culture - 09/11/18 12:35 Bacteria identification in wound by culture SEE COMMEN NRG FREE TEXT EXTERNAL SENSITIVITY REPORT SENT 09/14/18 15:05 NRG QUANTITY OF GROWTH . NRG RML Sensitivity Panel - 09/11/18 12:35 Oxacillin susceptibility test by minimum inhibitory concentration R NRG Clindamycin susceptibility test by minimum inhibitory concentration <= NRG Erythromycin susceptibility test by minimum inhibitory concentration > NRG Trimethoprim/sulfamethoxazole susceptibility test by minimum inhibitoryconcentration S NRG Vancomycin susceptibility test by minimum inhibitory concentration 1 NRG Levofloxacin susceptibility test by minimum inhibitory concentration > NRG Rifampin susceptibility test by minimum inhibitory concentration <= NRG Cefazolin susceptibility test by minimum inhibitory concentration > NRG Linezolid susceptibility test by minimum inhibitory concentration 2 NRG Penicillin G susceptibility test by minimum inhibitory concentration > NRG Moxifloxacin susceptibility test by minimum inhibitory concentration S NRG Minocycline susc ANDREA <= NRG Ethanol - 02/22/19 00:23 Ethanol 186 mg/dL 20-80 Urinalysis - 02/22/19 00:31 Icotest N/A Negative Urine Volume Urine Volume Sufficient (10mL) Urine Yeast No Yeast present Urine-Appearance Slightly Cloudy Clear Urine-Bacteria Trace Urine-Bilirubin Negative Negative Urine-Blood Negative Negative Urine-Color Yellow Colorless-Lt. Yellow Urine-Epithelial Cells 0-5/HPF Urine-Glucose Negative Negative Urine-Ketones Negative Negative Urine-Leukocytes Negative Negative Urine-Mucus 4+ Urine-Nitrite Negative Negative Urine-Other Urine Saved if Culture Needed (48hrs from time of collection) Urine-pH 6.0 5-8.5 Urine-Protein Negative Negative Urine-RBC 0-2/HPF Urine-Specific Crimora 1.025 1.000-1.030 Urine-WBC 2-5/HPF Urobilinogen 0.2 0.2-1.0 Urine Culture - 02/22/19 00:31 PRELIM CULTURE RESULTS No Growth 24 hours FINAL CULTURE RESULTS No Growth 48 hours MEDIA PLATED Setup at 03:21 on 02/22/2019 CULTURE SOURCE VOID Encounters ACCT No. Visit Date/Time Discharge Status Pt. Type Provider Facility Loc./Unit Complaint [id number] 02/21/2019 23:46:00 02/22/2019 01:23:00 DIS Outpatient Jerrod Frank [facility] ER [id number] 06/14/2018 17:50:00 06/14/2018 19:02:00 DIS Outpatient Terrance Armas [facility] ER [id number] 01/05/2018 09:55:00 01/05/2018 11:01:00 DIS Outpatient [facility] ER [id number] 06/14/2018 18:37:30 Document Registration [id number] 09/11/2018 11:48:00 09/11/2018 12:54:00 DIS Outpatient SANTIAGO GRULLON APRN [facility] ER CYST UNDER R ARM,SEEN HERE Wednesday [id number] 09/10/2018 01:06:00 09/10/2018 03:15:00 DIS Outpatient HALEY BELL MD [facility] ER KNOTS UNDER RT ARM-PAINFUL [id number] 07/21/2018 18:01:00 07/21/2018 18:27:00 DIS Emergency SANTIAGO GRULLON APRN [facility] ER WOUND CARE [id number] 07/18/2018 09:47:00 07/18/2018 11:56:00 DIS Emergency HALEY BELL MD [facility] ER STOMACH WOUND;INFECTED [id number] 01/15/2016 10:00:00 01/15/2016 12:20:00 DIS Emergency DANIEL LANDRY DO [facility] ER [id number] 03/20/2015 22:35:00 03/21/2015 00:39:00 DIS Emergency HALEY BELL MD [facility] ER [id number] 12/12/2014 01:59:00 12/12/2014 02:39:00 DIS Emergency KIMI DHILLON DO [facility] ER [id number] 02/21/2019 23:46:00 Document Registration
--- NOTE | 2019-02-28 15:04 | NUR ---
Nahum callaway in [facility] - 02/28/19 at 1700 by TIFFANIE REPORT CALLED TO JOSEE
--- NOTE | 2019-02-28 15:07 | ED Psychosocial ---
General Chief Complaint: Psych/Social Disorder Stated Complaint: SUICIDAL Source: patient, family Exam Limitations: no limitations History of Present Illness Date Seen by Provider: Feb 28, 2019 Time Seen by Provider: 15:04 Initial Comments To ER with significant other with reports of a one-week history of depression and suicidality. He awakened in the middle of the night 1 night at the onset of this, states he couldn't think straight, felt very anxious, since then he's been consistently depressed to the point that he is on about suicide. He states that if he had a gun in the house he would "blow his brains out" but informs me he does not have a gun in the house. He is also mentioned stepping in front of a semi or a train, hanging himself. He does have a history about 15 years ago of being suicidal with depression, he was admitted here when we had behavioral health inpatient and at [facility] in [place]. He currently is not on any medications and has no history of anything other than depression and anxiety. He has recently been using a lot of alcohol and was in fact here yesterday for alc ohol intoxication was not suicidal at that point. He's not had any alcohol today and now he is suicidal. Timing/Duration: week, getting worse Associated Symptoms: anxiety, suicidal ideation Allergies and Home Medications Allergies Coded Allergies: erythromycin base (Unverified Allergy, Unknown, 12/12/14) Home Medications Cephalexin 500 Mg Capsule, 500 MG PO QID Prescribed by: SANTIAGO GRULLON on 09/11/18 124 Fluoxetine HCl 20 Mg Tablet, 20 MG PO DAILY Prescribed by: SANTIAGO GRULLON on 02/28/191811 Hydrocodone/Acetaminophen 1 Each Tablet, 1 EACH PO Q6H PRN for PAIN-MODERATE Prescribed by: SANTIAGO GRULLON on 09/11/18 124 Lorazepam 0.5 Mg Tablet, 0.5 MG PO BID PRN for ANXIETY Do not fill unless fluoxetine is also filled Prescribed by: SANTIAGO GRULLON on 02/28/191811 Sulfamethoxazole/Trimethoprim 1 Each Tablet, 1 EACH PO BID Prescribed by: HALEY BELL on 09/10/18 0314 Patient Home Medication List Home Medication List Reviewed: Yes Review of Systems Constitutional: see HPI EENTM: see HPI Respiratory: no symptoms reported Cardiovascular: no symptoms reported Genitourinary: no symptoms reported Musculoskeletal: no symptoms reported Skin: no symptoms reported Psychiatric/Neurological: See HPI, Anxiety, Depressed, Emotional Problems Past Fgblmtk-Mepuzv-Ventft Hx Patient Social History Alcohol Beverage of Choice: Beer Drug of Choice: 'ALL OF THEM" Type Used: Cigarettes 2nd Hand Smoke Exposure: Yes Recent Hopitalizations: No Immunizations Up To Date Tetanus Booster (TDap): Unknown Seasonal Allergies Seasonal Allergies: No Past Medical History Surgeries: No Respiratory: No Cardiac: No Neurological: No Reproductive Disorders: No Sexually Transmitted Disease: No HIV/AIDS: No Genitourinary: No Gastrointestinal: No Musculoskeletal: No Endocrine: No HEENT: No Cancer: No Psychosocial: No Integumentary: No Blood Disorders: No Adverse Reaction/Blood Tranf: No Family Medical History No Pertinent Family Hx Physical Exam Vital Signs - First Documented 02/28/19 14:53 Temp 99.0 Pulse 90 Resp 20 B/P (MAP) 136/86 (103) Pulse Ox 96 Capillary Refill : Height, Weight, BMI Height: 5'9.00" Weight: 150lbs. oz. 68.168977iu; 14.06 BMI Method:Stated General Appearance: WD/WN, no apparent distress HEENT: PERRL/EOMI, normal ENT inspection Neck: non-tender, full range of motion Respiratory: no respiratory distress, no accessory muscle use Gastrointestinal: non tender, soft Neurologic/Psychiatric: alert, normal mood/affect, oriented x 3 Appearance/Memory: appropriate appearance, appropriate insight Skin: normal color, warm/dry Cooperative, pleasant, makes good eye contact Progress/Results/Core Measures Results/Orders Lab Results Laboratory Tests Test 02/28/19 15:24 02/28/19 15:31 Range/Units Urine Color YELLOW Urine Clarity CLEAR Urine pH 5 5-9 Urine Specific [place] 1.020 1.016-1.022 Urine Protein 1+ H NEGATIVE Urine Glucose (UA) NEGATIVE NEGATIVE Urine Ketones 1+ H NEGATIVE Urine Nitrite NEGATIVE NEGATIVE Urine Bilirubin NEGATIVE NEGATIVE Urine Urobilinogen 1 NORMAL MG/DL Urine Leukocyte Esterase 1+ H NEGATIVE Urine RBC (Auto) NEGATIVE NEGATIVE Urine RBC NONE /HPF Urine WBC RARE /HPF Urine Squamous Epithelial Cells RARE /HPF Urine Crystals PRESENT H /LPF Urine Amorphous Sediment RARE ALFONSO URATES H /LPF Urine Bacteria MODERATE H /HPF Urine Casts NONE /LPF Urine Mucus SMALL H /LPF Urine Culture Indicated YES Urine Opiates Screen NEGATIVE NEGATIVE Urine Oxycodone Screen NEGATIVE NEGATIVE Urine Methadone Screen NEGATIVE NEGATIVE Urine Propoxyphene Screen NEGATIVE NEGATIVE Urine Barbiturates Screen NEGATIVE NEGATIVE Ur Tricyclic Antidepressants Screen NEGATIVE NEGATIVE Urine Phencyclidine Screen NEGATIVE NEGATIVE Urine Amphetamines Screen NEGATIVE NEGATIVE Urine Methamphetamines Screen NEGATIVE NEGATIVE Urine Benzodiazepines Screen POSITIVE H NEGATIVE Urine Cocaine Screen NEGATIVE NEGATIVE Urine Cannabinoids Screen NEGATIVE NEGATIVE White Blood Count 9.3 4.3-11.0 10^3/uL Red Blood Count 4.75 4.35-5.85 10^6/uL Hemoglobin 15.0 13.3-17.7 G/DL Hematocrit 44 40-54 % Mean Corpuscular Volume 94 80-99 FL Mean Corpuscular Hemoglobin 32 25-34 PG Mean Corpuscular Hemoglobin Concent 34 32-36 G/DL Red Cell Distribution Width 13.3 10.0-14.5 % Platelet Count 278 130-400 10^3/uL Mean Platelet Volume 9.8 7.4-10.4 FL Neutrophils (%) (Auto) 73 42-75 % Lymphocytes (%) (Auto) 19 12-44 % Monocytes (%) (Auto) 7 0-12 % Eosinophils (%) (Auto) 1 0-10 % Basophils (%) (Auto) 0 0-10 % Neutrophils # (Auto) 6.8 1.8-7.8 X 10^3 Lymphocytes # (Auto) 1.8 1.0-4.0 X 10^3 Monocytes # (Auto) 0.7 0.0-1.0 X 10^3 Eosinophils # (Auto) 0.1 0.0-0.3 10^3/uL Basophils # (Auto) 0.0 0.0-0.1 10^3/uL Sodium Level 141 135-145 MMOL/L Potassium Level 3.8 3.6-5.0 MMOL/L Chloride Level 105 98-107 MMOL/L Carbon Dioxide Level 23 21-32 MMOL/L Anion Gap 13 5-14 MMOL/L Blood Urea Nitrogen 11 7-18 MG/DL Creatinine 1.03 0.60-1.30 MG/DL Estimat Glomerular Filtration Rate > 60 BUN/Creatinine Ratio 11 Glucose Level 96 70-105 MG/DL Calcium Level 9.7 8.5-10.1 MG/DL Corrected Calcium 8.5-10.1 MG/DL Total Bilirubin 0.4 0.1-1.0 MG/DL Aspartate Amino Transf (AST/SGOT) 17 5-34 U/L Alanine Aminotransferase (ALT/SGPT) 11 0-55 U/L Alkaline Phosphatase 46 40-136 U/L Total Protein 7.5 6.4-8.2 GM/DL Albumin 4.9 H 3.2-4.5 GM/DL Salicylates Level < 5.0 L 5.0-20.0 MG/DL Acetaminophen Level 14 10-30 UG/ML Serum Alcohol < 10 <10 MG/DL My Orders Orders - SANTIAGO GRULLON APRN Cbc With Automated Diff (02/28/19 15:02) Comprehensive Metabolic Panel (02/28/19 15:02) Ua Culture If Indicated (02/28/19 15:02) Alcohol (02/28/19 15:02) Salicylate (02/28/19 15:02) Acetaminophen (02/28/19 15:02) Ed Iv/Invasive Line Start (02/28/19 15:02) Ekg Tracing (02/28/19 15:02) Drug Screen Stat (Urine) (02/28/19 15:02) Urine Culture (02/28/19 15:24) Vital Signs/I&O 02/28/19 02/28/19 14:53 18:32 Temp 99.0 99.0 Pulse 90 90 Resp 20 20 B/P (MAP) 136/86 (103) 136/86 (103) Pulse Ox 96 96 Departure Communication (Admissions) I spoke with Angela Stone, [facility] in [place]. None of these facilities have bed availability. Spoke with [facility], they are reviewing his material is states he cannot go that far from home. He would rather pursue outpatient treatment with medications and therapy here. Both he and his significant other Ludivina at the bedside and feeling like he would be able to safely go home as long as he had something to control his anxiety and depression. Discussed with him that I would do a short course of lorazepam and an SSRI and arrange close follow up with [facility]. Patient and his significant other are both agreeable with this plan. He assures me that he can go home safely and will not hurt himself and he will return to the emergency room for any worsening depression or anxiety. 1823- I spoke with Lalita from [facility], she agrees to call him either tonight or tomorrow to arrange follow-up tomorrow. Phone number that the patient and his significant other (Ludivina) would prefer me to use is Manohar, . Impression Primary Impression: Depression Qualified Codes: F33.1 - Major depressive disorder, recurrent, moderate Disposition: 01 HOME, SELF-CARE Condition: Stable Departure-Patient Inst. Decision time for Depature: 18:10 Referrals: NO,LOCAL PHYSICIAN (PCP/Family) Primary Care Physician Patient Instructions: Depression Add. Discharge Instructions: 1. Call [facility] at [phone] for any concerns. Return to the emergency room for any worsening depression or anxiety. Fill the prescriptions tonight and begin them tonight. All discharge instructions reviewed with patient and/or family. Voiced understanding. Scripts Fluoxetine HCl (Fluoxetine HCl) 20 Mg Tablet 20 MG PO DAILY, #30 TAB 1 Refill Prov: SANTIAGO GRULLON APRN 02/28/19 Lorazepam (Lorazepam) 0.5 Mg Tablet 0.5 MG PO BID PRN for ANXIETY, #10 TAB Do not fill unless fluoxetine is also filled Prov: SANTIAGO GRULLON APRN 02/28/19 SANTIAGO GRULLON APRN Feb 28, 2019 15:07
[2019-02-28 15:41] LABS: BASOPHILS % (AUTO) 0 % (0-10); EOSINOPHILS # (AUTO) 0.1 10^3/uL (0.0-0.3); EOSINOPHILS % (AUTO) 1 % (0-10); HEMATOCRIT 44 % (40-54); LYMPHOCYTES # (AUTO) 1.8 X 10^3 (1.0-4.0); LYMPHOCYTES % (AUTO) 19 % (12-44); MEAN CORPUSCULAR HEMOGLOBIN 32 PG (25-34); MEAN CORPUSCULAR HGB CONC 34 G/DL (32-36); MEAN CORPUSCULAR VOLUME 94 FL (80-99); MEAN PLATELET VOLUME 9.8 FL (7.4-10.4); MONOCYTES # (AUTO) 0.7 X 10^3 (0.0-1.0); MONOCYTES % (AUTO) 7 % (0-12); NEUTROPHILS # (AUTO) 6.8 X 10^3 (1.8-7.8); NEUTROPHILS % (AUTO) 73 % (42-75); PLATELET COUNT 278 10^3/uL (130-400); RED CELL DISTRIBUTION WIDTH 13.3 % (10.0-14.5); WHITE BLOOD COUNT 9.3 10^3/uL (4.3-11.0)
[2019-02-28 15:51] LABS: BILIRUBIN,URINE NEGATIVE (NEGATIVE); CLARITY,URINE CLEAR; COLOR,URINE YELLOW; GLUCOSE, URINE (UA) NEGATIVE (NEGATIVE); KETONES,URINE 1+ (NEGATIVE); LEUKOCYTE ESTERASE ,URINE 1+ (NEGATIVE); NITRITE,URINE NEGATIVE (NEGATIVE); PH,URINE 5 (5-9); PROTEIN,URINE 1+ (NEGATIVE); UROBILINOGEN,URINE 1 MG/DL (NORMAL)
[2019-02-28 15:58] LABS: ACETAMINOPHEN 14 UG/ML (10-30); ALANINE AMINOTRANSFERASE 11 U/L (0-55); ALBUMIN 4.9 GM/DL (3.2-4.5); ALKALINE PHOSPHATASE 46 U/L (40-136); BILIRUBIN,TOTAL 0.4 MG/DL (0.1-1.0); BUN/CREATININE RATIO 11; CALCIUM 9.7 MG/DL (8.5-10.1); CARBON DIOXIDE 23 MMOL/L (21-32); CHLORIDE 105 MMOL/L (98-107); CREATININE SERUM 1.03 MG/DL (0.60-1.30); GFR ESTIMATED > 60; GLUCOSE 96 MG/DL (70-105); POTASSIUM 3.8 MMOL/L (3.6-5.0); SALICYLATE < 5.0 MG/DL (5.0-20.0); SODIUM 141 MMOL/L (135-145); TOTAL PROTEIN 7.5 GM/DL (6.4-8.2)
[2019-02-28 16:07] LABS: AMPHETAMINE SCREEN, URINE NEGATIVE (NEGATIVE); BARBITURATE SCREEN URINE NEGATIVE (NEGATIVE); BENZODIAZEPINES SCREEN URINE POSITIVE (NEGATIVE); CANNABINOID SCREEN, URINE NEGATIVE (NEGATIVE); COCAINE SCREEN URINE NEGATIVE (NEGATIVE); METHADONE STAT NEGATIVE (NEGATIVE); METHAMPHETAMINE SCREEN URINE S NEGATIVE (NEGATIVE); OPIATE SCREEN URINE NEGATIVE (NEGATIVE); OXYCODONE STAT NEGATIVE (NEGATIVE); PROPOXYPHENE STAT NEGATIVE (NEGATIVE); TRICYCLIC ANTIDEPRESSANTS SCRE NEGATIVE (NEGATIVE)
[2019-02-28 16:08] LABS: AMORPHOUS SEDIMENT,UR RARE AMOR URATES /LPF; BACTERIA,URINE MODERATE /HPF; SQUAMOUS EPITHELIAL CELL,UR RARE /HPF; WBC,URINE RARE /HPF
--- NOTE | 2019-02-28 17:00 | NUR ---
PT REMAINS IN ROOM WITH SIGNIFIGANT OTHER, PT HAS NO NEEDS OR C/O AT THIS TIME, VS ASSESSED AND STABLE, WILL CONTINUE TO MONITOR
--- NOTE | 2019-02-28 17:21 | NUR ---
FACESHEET SENT TO [facility] PER REQUEST
[2019-02-28] MEDS ORDERED: LORA0.5T PO (18:12)
[2019-02-28] MEDS ORDERED: FLUO20TA28 PO (18:12)
--- NOTE | 2019-02-28 18:16 | NUR ---
PT REMAINS IN ROOM WITH SIGNIFIGANT OTHER, PT DENIES ANY NEEDS OR C/O AT THIS TIME, VS ASSESSED AND STABLE, WILL CONTINUE TO MONITOR
[2019-02-28 18:32] VITALS: BP 136/86
== END 2019-02-28 18:32 | disposition home or self-care (01) ==
LOC: EDUNIT# 14:48 → ER 14:49
DX: F32.9 Major depressive disorder, single episode, unspecified (principal); F41.9 Anxiety disorder, unspecified; Z88.1 Allergy status to other antibiotic agents
CPT/HCPCS: 36415; 80053; 80306; 80320; 80329; 81000; 85025; 87088; 93005

== ENCOUNTER 2019-06-21 18:29 | Emergency (ER) | payer SELFPAY ==
[~2019-06-21] VITALS: Ht 170 cm; Wt 69.7 kg
[~2019-06-21 18:29] MED LIST changes: +FLUO20TA28 PO; +LORA0.5T PO
[2019-06-21] MEDS ORDERED: AMOX500C2 PO (18:56)
[2019-06-21] MEDS ORDERED: NAPR-1071 PO (18:56)
--- NOTE | 2019-06-21 18:56 | ED EENT ---
History of Present Illness General Chief Complaint: Dental Problems/Pain Stated Complaint: DENTAL PAIN Nursing Triage Note: PATIENT HERE FOR CONCERNS ABOTU BROKEN TEETH. STATES HE HAS 4 THAT ARE BROKEN IN THE BACK ON BOTH SIDES. UNABLE TO GET INTO A DENTIST OR CHC. Source: patient Exam Limitations: no limitations History of Present Illness Date Seen by Provider: Jun 21, 2019 Time Seen by Provider: 18:54 Timing/Duration: abrupt Severity: moderate Location: dental Prearrival Treatment: no prearrival treatment Associated Symptoms: tooth pain Allergies and Home Medications Allergies Coded Allergies: erythromycin base (Unverified Allergy, Unknown, 12/12/14) Home Medications Amoxicillin 500 Mg Capsule, 500 MG PO TID Prescribed by: SANTIAGO GRULLON on 06/21/191855 Cephalexin 500 Mg Capsule, 500 MG PO QID Prescribed by: SANTIAGO GRULLON on 09/11/18 124 Fluoxetine HCl 20 Mg Tablet, 20 MG PO DAILY Prescribed by: SANTIAGO GRULLON on 02/28/191811 Hydrocodone/Acetaminophen 1 Each Tablet, 1 EACH PO Q6H PRN for PAIN-MODERATE Prescribed by: SANTIAGO GRULLON on 09/11/18 124 Lorazepam 0.5 Mg Tablet, 0.5 MG PO BID PRN for ANXIETY Do not fill unless fluoxetine is also filled Prescribed by: SANTIAGO GRULLON on 02/28/191811 Naproxen 500 Mg Tablet, 500 MG PO BID Prescribed by: SANTIAGO GRULLON on 06/21/191855 Sulfamethoxazole/Trimethoprim 1 Each Tablet, 1 EACH PO BID Prescribed by: HALEY BELL on 09/10/18 0314 Patient Home Medication List Home Medication List Reviewed: Yes Review of Systems Review of Systems Constitutional: see HPI Eyes: No Symptoms Reported Ears: No Symptoms Reported Nose: no symptoms reported Mouth: no symptoms reported Throat: no symptoms reported Respiratory: no symptoms reported Cardiovascular: no symptoms reported Musculoskeletal: no symptoms reported Skin: no symptoms reported Past Knsywyg-Ukiftn-Mrewef Hx Patient Social History Alcohol Use: Rarely Uses Number of Drinks Today: AA Alcohol Beverage of Choice: Beer Recreational Drug Use: Yes (MARIJUANA) Drug of Choice: 'ALL OF THEM" Smoking Status: Current Everyday Smoker Type Used: Cigarettes 2nd Hand Smoke Exposure: Yes Recent Foreign Travel: No Contact w/Someone Who Travel: No Recent Infectious Disease Expo: No Recent Hopitalizations: No Immunizations Up To Date Tetanus Booster (TDap): Unknown Seasonal Allergies Seasonal Allergies: No Past Medical History Surgeries: No Respiratory: No Cardiac: No Neurological: No Reproductive Disorders: No Sexually Transmitted Disease: No HIV/AIDS: No Genitourinary: No Gastrointestinal: No Musculoskeletal: No Endocrine: No HEENT: No Cancer: No Psychosocial: No Integumentary: No Blood Disorders: No Adverse Reaction/Blood Tranf: No Family Medical History No Pertinent Family Hx Physical Exam Vital Signs Vital Signs - First Documented 06/21/19 18:36 Temp 37.2 Pulse 93 Resp 18 B/P (MAP) 118/74 (89) Pulse Ox 97 Height, Weight, BMI Height: 5'9.00" Weight: 150lbs. 0oz. 68.159976bm; 24.00 BMI Method:Stated General Appearance: WD/WN, no apparent distress Eyes: bilateral eye normal inspection, bilateral eye PERRL, bilateral eye EOMI Ears: bilateral ear auricle normal, bilateral ear canal normal, bilateral ear TM normal Mouth/Throat: pharynx normal; No mandibular swelling; other (multiple dental caries, fractured teeth.) Neck: non-tender, full range of motion Respiratory: no respiratory distress, no accessory muscle use Neurologic/Psychiatric: alert, normal mood/affect, oriented x 3 Skin: normal color, warm/dry Progress/Results/Core Measures Results/Orders Vital Signs/I&O 06/21/19 18:36 Temp 37.2 Pulse 93 Resp 18 B/P (MAP) 118/74 (89) Pulse Ox 97 Blood Pressure Mean: 89 POS Departure Impression Primary Impression: Pain, dental Disposition: 01 HOME, SELF-CARE Condition: Stable Departure-Patient Inst. Decision time for Depature: 18:55 Referrals: NO,LOCAL PHYSICIAN (PCP/Family) Primary Care Physician Patient Instructions: Dental Pain (DC) Add. Discharge Instructions: 1. Antibiotics as directed 2. Follow-up with a dentist of your choosing. Call tomorrow to be seen. All discharge instructions reviewed with patient and/or family. Voiced understanding. Scripts Naproxen (Naprosyn) 500 Mg Tablet 500 MG PO BID, #30 TAB 0 Refills Prov: SANTIAGO GRULLON APRN 06/21/19 Amoxicillin (Amoxicillin) 500 Mg Capsule 500 MG PO TID, #21 CAP 0 Refills Prov: SANTIAGO GRULLON APRN 06/21/19 Work/School Note: Work Release Form Return to Work: Jun 21, 2019 Restrictions: No Restrictions Other Restrictions Listed Below: Patient requests this note, here for dental pain 7:15 PM 06/21/19 SANTIAGO GRULLON APRN Jun 21, 2019 18:56 POS
[2019-06-21 19:17] VITALS: BP 118/74
== END 2019-06-21 19:18 | disposition home or self-care (01) ==
LOC: EDUNIT# 18:29 → ER 18:31
DX: K08.89 Other specified disorders of teeth and supporting structures (principal); F17.210 Nicotine dependence, cigarettes, uncomplicated; Z88.1 Allergy status to other antibiotic agents
CPT/HCPCS: 99282

== ENCOUNTER 2019-06-26 17:50 | Emergency (ER) | payer SELFPAY ==
[~2019-06-26] VITALS: Ht 175.3 cm; Wt 68.2 kg
[~2019-06-26 17:50] MED LIST changes: +AMOX500C2 PO; +NAPR-1071 PO
--- NOTE | 2019-06-26 18:13 | NUR ---
PLACED IN ROOM # CLOTHES REMOVED AND PLACED IN GOWN. CLOTHES AND BELONGINGS PLACED BEHINDE LOCKED DOOR IN ROOM .
--- NOTE | 2019-06-26 18:27 | NUR ---
REPORTS TO STAFF THAT HIS CHILDREN HAVE BEEN TAKEN AWAY
[2019-06-26 18:43] LABS: CLARITY,URINE CLEAR; COLOR,URINE YELLOW; GLUCOSE, URINE (UA) NEGATIVE (NEGATIVE); KETONES,URINE NEGATIVE (NEGATIVE); LEUKOCYTE ESTERASE ,URINE NEGATIVE (NEGATIVE); NITRITE,URINE NEGATIVE (NEGATIVE); PROTEIN,URINE NEGATIVE (NEGATIVE)
--- NOTE | 2019-06-26 19:00 | NUR ---
ASSUMED CARE OF THIS PATIENT AT THIS TIME. PATIENT IS RETING QUIETLY IN ROOM. INTRODUCED SELF, PATIENT DENIES ADDITONAL NEEDS AT THIS TIME. CALL LIGHT IN REACH. NOTED PATIENT HAS WALLET AND PHONE IN HIS POSSESION, THE REMAINDER OF HIS BELONGINGS ARE LOCKED AWAY IN THE ROOM.
[2019-06-26 19:02] LABS: BACTERIA,URINE NEGATIVE /HPF; BILIRUBIN,URINE 1+ (NEGATIVE)
[2019-06-26 19:05] LABS: AMPHETAMINE SCREEN, URINE NEGATIVE (NEGATIVE); BARBITURATE SCREEN URINE NEGATIVE (NEGATIVE); BENZODIAZEPINES SCREEN URINE NEGATIVE (NEGATIVE); CANNABINOID SCREEN, URINE POSITIVE (NEGATIVE); COCAINE SCREEN URINE NEGATIVE (NEGATIVE); METHADONE STAT NEGATIVE (NEGATIVE); METHAMPHETAMINE SCREEN URINE S NEGATIVE (NEGATIVE); OPIATE SCREEN URINE NEGATIVE (NEGATIVE); OXYCODONE STAT NEGATIVE (NEGATIVE); PROPOXYPHENE STAT NEGATIVE (NEGATIVE); TRICYCLIC ANTIDEPRESSANTS SCRE NEGATIVE (NEGATIVE)
[2019-06-26 19:08] LABS: BASOPHILS % (AUTO) 0 % (0-10); EOSINOPHILS % (AUTO) 1 % (0-10); HEMATOCRIT 44 % (40-54); HEMOGLOBIN 15.3 G/DL (13.3-17.7); LYMPHOCYTES # (AUTO) 1.8 X 10^3 (1.0-4.0); LYMPHOCYTES % (AUTO) 25 % (12-44); MEAN CORPUSCULAR HEMOGLOBIN 31 PG (25-34); MEAN CORPUSCULAR HGB CONC 35 G/DL (32-36); MEAN CORPUSCULAR VOLUME 90 FL (80-99); MEAN PLATELET VOLUME 9.9 FL (7.4-10.4); MONOCYTES # (AUTO) 0.7 X 10^3 (0.0-1.0); MONOCYTES % (AUTO) 10 % (0-12); NEUTROPHILS # (AUTO) 4.5 X 10^3 (1.8-7.8); NEUTROPHILS % (AUTO) 64 % (42-75); PLATELET COUNT 243 10^3/uL (130-400); WHITE BLOOD COUNT 7.1 10^3/uL (4.3-11.0)
[2019-06-26 19:29] LABS: ALANINE AMINOTRANSFERASE 14 U/L (0-55); ALBUMIN 4.7 GM/DL (3.2-4.5); ALKALINE PHOSPHATASE 46 U/L (40-136); BILIRUBIN,TOTAL 0.7 MG/DL (0.1-1.0); BUN/CREATININE RATIO 10; CALCIUM 9.2 MG/DL (8.5-10.1); CARBON DIOXIDE 21 MMOL/L (21-32); CHLORIDE 105 MMOL/L (98-107); CREATININE SERUM 0.84 MG/DL (0.60-1.30); GFR ESTIMATED > 60; GLUCOSE 99 MG/DL (70-105); POTASSIUM 3.3 MMOL/L (3.6-5.0); SALICYLATE < 5.0 MG/DL (5.0-20.0); SODIUM 143 MMOL/L (135-145); TOTAL PROTEIN 7.5 GM/DL (6.4-8.2)
[2019-06-26 19:33] LABS: ACETAMINOPHEN < 10 UG/ML (10-30)
--- NOTE | 2019-06-26 20:04 | ED Psychosocial ---
General Chief Complaint: Suicidal Ideation Risk Stated Complaint: PSYCH EVAL Nursing Triage Note: Pt amb to triage with c/o suicidal ideation. Pt reports recent stressors of child custody concerns with ex s/o. Pt states, "I tried to drink myself to this weekend." Pt reports he would like to seek inpatient psychiatric treament. Source: patient Exam Limitations: no limitations (ALMA DELIA WALSH) History of Present Illness Date Seen by Provider: Jun 26, 2019 Time Seen by Provider: 19:20 Initial Comments 39-year-old male who presents to the emergency room with complaints of suicidal ideation. He reports that this past weekend he tried to drink himself to and has had continual thoughts of self-harm. He reports he is thoughts of shooting himself in the head, jumping in front of a train, or jumping off of a bridge. He reports that he would like inpatient psychiatric treatment. He has recently lost custody of his children to his ex-and this is a huge stressor for him. He has had suicide attempts in the past. Timing/Duration: constant, getting worse Associated Symptoms: suicidal ideation (ALMA DELIA WALSH) Allergies and Home Medications Allergies Coded Allergies: erythromycin base (Unverified Allergy, Unknown, 12/12/14) Home Medications Amoxicillin 500 Mg Capsule, 500 MG PO TID Prescribed by: SANTIAGO GRULLON on 06/21/191855 Cephalexin 500 Mg Capsule, 500 MG PO QID Prescribed by: SANTIAGO GRULLON on 09/11/18 124 Fluoxetine HCl 20 Mg Tablet, 20 MG PO DAILY Prescribed by: SANTIAGO GRULLON on 02/28/191811 Hydrocodone/Acetaminophen 1 Each Tablet, 1 EACH PO Q6H PRN for PAIN-MODERATE Prescribed by: SANTIAGO GRULLON on 09/11/18 124 Lorazepam 0.5 Mg Tablet, 0.5 MG PO BID PRN for ANXIETY Do not fill unless fluoxetine is also filled Prescribed by: SANTIAGO GRULLON on 02/28/191811 Naproxen 500 Mg Tablet, 500 MG PO BID Prescribed by: SANTIAGO GRULLON on 06/21/191855 Sulfamethoxazole/Trimethoprim 1 Each Tablet, 1 EACH PO BID Prescribed by: HALEY BELL on 09/10/18 0314 Patient Home Medication List Home Medication List Reviewed: Yes (ALMA DELIA WALSH) Review of Systems Constitutional: see HPI; No chills, No fever Psychiatric/Neurological: See HPI, Depressed, Emotional Problems (ALMA DELIA WALSH) All Other Systems Reviewed Negative Unless Noted: Yes (ALMA DELIA WALSH) Past Dewuztc-Yzgfjv-Zfledh Hx Past Med/Social Hx: Reviewed Nursing Past Med/Soc Hx (ALMA DELIA WALSH) Patient Social History Alcohol Use: Occasionally Uses Number of Drinks Today: 0 Alcohol Beverage of Choice: Beer, Whiskey Recreational Drug Use: Yes Drug of Choice: 'ALL OF THEM" Smoking Status: Current Everyday Smoker Type Used: Cigarettes 2nd Hand Smoke Exposure: Yes Recent Foreign Travel: No Contact w/Someone Who Travel: No Recent Infectious Disease Expo: No Recent Hopitalizations: No Physical Abuse: No Sexual Abuse: No (ALMA DELIA WALSH) Immunizations Up To Date Tetanus Booster (TDap): Unknown (ALMA DELIA WALSH) Seasonal Allergies Seasonal Allergies: No (ALMA DELIA WALSH) Past Medical History Surgeries: No Respiratory: No Cardiac: No Neurological: No Reproductive Disorders: No Sexually Transmitted Disease: No HIV/AIDS: No Genitourinary: No Gastrointestinal: No Musculoskeletal: No Endocrine: No HEENT: No Cancer: No Psychosocial: No Integumentary: No Blood Disorders: No Adverse Reaction/Blood Tranf: No (ALMA DELIA WALSH) Family Medical History Reviewed Nursing Family Hx (ALMA DELIA WALSH) No Pertinent Family Hx (ALMA DELIA WALSH) Physical Exam Vital Signs - First Documented 06/26/19 18:13 Temp 36.9 Pulse 81 Resp 18 B/P (MAP) 133/88 (103) Pulse Ox 98 O2 Delivery Room Air (ARIA WORKMAN) Capillary Refill : Less Than 3 Seconds (ALMA DELIA WALSH) Height, Weight, BMI Height: 5'9.00" Weight: 150lbs. 0oz. [id number]; 22.00 BMI Method:Stated General Appearance: WD/WN, no apparent distress Respiratory: chest non-tender, lungs clear, normal breath sounds, no respiratory distress, no accessory muscle use, respiratory distress Cardiovascular: normal peripheral pulses, regular rate, rhythm, no edema, no gallop, no JVD, no murmur Extremities: normal capillary refill Neurologic/Psychiatric: alert, normal mood/affect, oriented x 3 Appearance/Memory: appropriate appearance, appropriate insight Behavior/Eye Contact: cooperative, good eye contact, normal speech Thoughts/Hallucinations: normal thought pattern, no apparent hallucination Skin: normal color, warm/dry (BERNOT,ALMA DELIA) Progress/Results/Core Measures Results/Orders Lab Results Laboratory Tests Test 06/26/19 18:35 06/26/19 19:00 Range/Units Urine Color YELLOW Urine Clarity CLEAR Urine pH 6.0 5-9 Urine Specific Padroni >=1.030 1.016-1.022 Urine Protein NEGATIVE NEGATIVE Urine Glucose (UA) NEGATIVE NEGATIVE Urine Ketones NEGATIVE NEGATIVE Urine Nitrite NEGATIVE NEGATIVE Urine Bilirubin 1+ H NEGATIVE Urine Urobilinogen 0.2 < = 1.0 MG/DL Urine Leukocyte Esterase NEGATIVE NEGATIVE Urine RBC (Auto) NEGATIVE NEGATIVE Urine RBC NONE /HPF Urine WBC NONE /HPF Urine Crystals NONE /LPF Urine Bacteria NEGATIVE /HPF Urine Casts NONE /LPF Urine Mucus SMALL H /LPF Urine Culture Indicated NO Urine Opiates Screen NEGATIVE NEGATIVE Urine Oxycodone Screen NEGATIVE NEGATIVE Urine Methadone Screen NEGATIVE NEGATIVE Urine Propoxyphene Screen NEGATIVE NEGATIVE Urine Barbiturates Screen NEGATIVE NEGATIVE Ur Tricyclic Antidepressants Screen NEGATIVE NEGATIVE Urine Phencyclidine Screen NEGATIVE NEGATIVE Urine Amphetamines Screen NEGATIVE NEGATIVE Urine Methamphetamines Screen NEGATIVE NEGATIVE Urine Benzodiazepines Screen NEGATIVE NEGATIVE Urine Cocaine Screen NEGATIVE NEGATIVE Urine Cannabinoids Screen POSITIVE H NEGATIVE White Blood Count 7.1 4.3-11.0 10^3/uL Red Blood Count 4.87 4.35-5.85 10^6/uL Hemoglobin 15.3 13.3-17.7 G/DL Hematocrit 44 40-54 % Mean Corpuscular Volume 90 80-99 FL Mean Corpuscular Hemoglobin 31 25-34 PG Mean Corpuscular Hemoglobin Concent 35 32-36 G/DL Red Cell Distribution Width 13.0 10.0-14.5 % Platelet Count 243 130-400 10^3/uL Mean Platelet Volume 9.9 7.4-10.4 FL Neutrophils (%) (Auto) 64 42-75 % Lymphocytes (%) (Auto) 25 12-44 % Monocytes (%) (Auto) 10 0-12 % Eosinophils (%) (Auto) 1 0-10 % Basophils (%) (Auto) 0 0-10 % Neutrophils # (Auto) 4.5 1.8-7.8 X 10^3 Lymphocytes # (Auto) 1.8 1.0-4.0 X 10^3 Monocytes # (Auto) 0.7 0.0-1.0 X 10^3 Eosinophils # (Auto) 0.0 0.0-0.3 10^3/uL Basophils # (Auto) 0.0 0.0-0.1 10^3/uL Sodium Level 143 135-145 MMOL/L Potassium Level 3.3 L 3.6-5.0 MMOL/L Chloride Level 105 98-107 MMOL/L Carbon Dioxide Level 21 21-32 MMOL/L Anion Gap 17 H 5-14 MMOL/L Blood Urea Nitrogen 8 7-18 MG/DL Creatinine 0.84 0.60-1.30 MG/DL Estimat Glomerular Filtration Rate > 60 BUN/Creatinine Ratio 10 Glucose Level 99 70-105 MG/DL Calcium Level 9.2 8.5-10.1 MG/DL Corrected Calcium 8.5-10.1 MG/DL Total Bilirubin 0.7 0.1-1.0 MG/DL Aspartate Amino Transf (AST/SGOT) 16 5-34 U/L Alanine Aminotransferase (ALT/SGPT) 14 0-55 U/L Alkaline Phosphatase 46 40-136 U/L Total Protein 7.5 6.4-8.2 GM/DL Albumin 4.7 H 3.2-4.5 GM/DL Salicylates Level < 5.0 L 5.0-20.0 MG/DL Acetaminophen Level < 10 L 10-30 UG/ML Serum Alcohol 40 H <10 MG/DL (ARIA WORKMAN) My Orders Orders - ARIA WORKMAN Ua Culture If Indicated (06/26/19 18:20) Cbc With Automated Diff (06/26/19 18:20) Comprehensive Metabolic Panel (06/26/19 18:20) Alcohol (06/26/19 18:20) Drug Screen Stat (Urine) (06/26/19 18:20) Acetaminophen (06/26/19 18:20) Salicylate (06/26/19 18:20) Ekg Tracing (06/26/19 18:20) Monitor-Rhythm Ecg Trace Only (06/26/19 18:20) Bh Status Checks/Observation Q15M (06/26/19 18:20) (ARIA WORKMAN) Medications Given in ED Current Medications Medications Dose Ordered Sig/Yulissa Route Start Time Stop Time Status Last Admin Dose Admin Ondansetron HCl 4 mg ONCE ONCE PO 06/26/19 21:45 11/25/19 21:46 DC 06/26/19 21:45 4 MG (ARIA WORKMAN) Vital Signs/I&O 06/26/19 06/26/19 18:13 22:00 Temp 36.9 36.6 Pulse 81 82 Resp 18 18 B/P (MAP) 133/88 (103) 141/93 (109) Pulse Ox 98 98 O2 Delivery Room Air (ARIA WORKMAN) Blood Pressure Mean: 103 POS Progress Progress Note : Time: 19:58 Progress Note I have contacted [facility] in [facility] at this time. They do have a bed available and requested records. They were faxed at this time. 2134: Contacted [facility] this time there is still reviewing patient records. Notified patient of this. He reports that he is becoming nauseated at this time 4 mg of Zofran ODT has been ordered. 2315: Awaiting provider to provider report at this time. Report given and care turned over to Dr. Workman. (ALMA DELIA WALSH) Initial ECG Impression Date: Jun 26, 2019 Initial ECG Impression Time: 18:30 Initial ECG Rate: 74 Initial ECG Rhythm: Normal Sinus Initial ECG Intervals: Normal Initial ECG Impression: Normal Initial ECG Comparisson: Unchanged (ALMA DELIA WALSH) Departure Impression Primary Impression: Suicidal ideation Disposition: 65 XFER TO PSYCH HOSP/UNIT Condition: Stable Transfer Transfer Reason: Exceeds level of care Transfer Facility: [facility] Method of Transfer: Private Vehicle (ALMA DELIA WALSH) Transfer Reason: Exceeds level of care Time Spoke to Accepting Phy: 11:00 Transfer Progress Notes Discussed the case with Dr. Hernandez at [place], [place] and he agrees to accept the patient. The patient's significant other has agreed to transport the patient by POV. Secure POV transport is unavailable. Transfer Time: 01:45 Method of Transfer: Private Vehicle (Contact At Once!) (ARIA WORKMAN) Departure-Patient Inst. Referrals: NO,LOCAL PHYSICIAN (PCP/Family) Primary Care Physician ALMA DELIA WALSH Jun 26, 2019 20:04 ARIA ENCISO Jun 27, 2019 01:29 POS
--- NOTE | 2019-06-26 20:30 | NUR ---
SANDWICH TRAY PROVIDED TO PATIENT, OTHER NEEDS DENIED AT THIS TIME. MAONITORING MAINTAINED.
--- NOTE | 2019-06-26 21:30 | NUR ---
PATIENT S.O. IN ROOM, PATIENT IS RESTIG QUIETLY C/O NAUSEA ONE EPISODE OF EMISIS.
[2019-06-26] MEDS ORDERED: ONDANSETRON 4 MG (ZOFRAN) ORAL DISSOLVE TAB PO ONE (21:45)
[2019-06-26 22:00] VITALS: BP 141/93
--- NOTE | 2019-06-26 22:02 | NUR ---
TOOK A CALL FROM [facility] IN RELATION TO ADMISSION FOR THIS PATIENT. CURRENT VIATAL SIGNS PROVIDED WELL DIRECT NUMBER FOR DOC TO DOC. PATIENT IS STABLE ALERT AND ORENTED X4 AND RESTING IN ROOM WITH S.O. AT BEDSIDE. FREQUENT MONITORING MAINTAINED. CALL LIGHT IN REACH.
--- NOTE | 2019-06-26 22:34 | NUR ---
CALL MADE TO GEETA CAPUTO FOR POTENTIAL TRANSPORT TO [facility].
--- NOTE | 2019-06-26 23:30 | NUR ---
VISUAL OBSERVATION MAINTAINED, PATIENT APPEARS TO BE ASLEEP WITH DOOR OPEN AND LIGHTS OFF AT THIS TIME. FREQUENT MONITORING MAINTAINED.
--- NOTE | 2019-06-27 00:06 | NUR ---
EMIGDIO SIGNED BY PATIENT FOR TRANSFER TO [facility] ROOM 8110, NURSE WILL BE LINDA. PATIENT RESTING QUIETLY, CALL LIGHT REMAINS IN REACH. MONITORING MAINTAINED.
--- NOTE | 2019-06-27 00:38 | NUR ---
CONTACTED GEETA CAPUTO TO TRANSPORT PATIENT TO [facility] AND HE STATES D/T THE LATE HOUR HE WILL EDUCATION PARAPROFESSIONAL THE PATIENT AT 0600.
--- NOTE | 2019-06-27 00:45 | NUR ---
DR COTTO WAS INFORMED TRANSPORTATION NOT AVAILABLE UNTIL 0600. PERMISSION GIVEN FOR PATIENT S.O. TO TRANSPORT PATIENT TO [facility]. PATIENT PLACES CALL TO HIS S.O.
--- NOTE | 2019-06-27 01:05 | NUR ---
[facility]
--- NOTE | 2019-06-27 01:15 | NUR ---
DR COTTO HAS OKAYED TRANSPORT BY PRIVATE VEHICLE, PATIENTS S.O. WILL TRANSPORT PATIENT TO [facility].
--- NOTE | 2019-06-27 01:34 | NUR ---
MADHURI ALDRICH SO HAS ARRIVED TO TAKE PATIENT TO [facility], PACKET PROVIDED WITH ALL INFORMATION.
[2019-06-27 01:35] VITALS: BP 138/86
== END 2019-06-27 01:35 ==
LOC: EDUNIT# 17:50 → ER 17:51
DX: R45.851 Suicidal ideations (principal); F17.210 Nicotine dependence, cigarettes, uncomplicated; Z88.1 Allergy status to other antibiotic agents
CPT/HCPCS: 36415; 80053; 80306; 80320; 80329; 81000; 85025; 93005